=== PATIENT | male | born 1950 | race Two or more races ===

== ENCOUNTER 2022-06-19 07:30 | Inpatient (IN) | payer OTHER ==
[~2022-06-19] VITALS: Ht 170.2 cm; Wt 72.6 kg
[2022-06-19] MEDS ORDERED: ZOLOFT50 MG PO (08:49)
[2022-06-24] MEDS ORDERED: MIRTAZAPINE7.5 MG (09:10)
[2022-06-26] MEDS ORDERED: ELIQUIS2.5 MG PO (14:43)
[2022-06-26] MEDS ORDERED: DUI500 PO (14:43)
[2022-06-26] MEDS ORDERED: PERCOCET 5-3251 EACH PO (14:43)
== END 2022-06-26 19:18 | disposition home or self-care (01) | DRG 470 ==
LOC: O/R 06-24 06:23 → SURH 06-24 06:23 → SURG 06-24 07:00 → SURH 06-24 10:52
PROVIDERS: ADMIT Orthopaedic Surgery; ATTEND Orthopaedic Surgery
PROC: 0SRD0J9 Replacement of Left Knee Joint with Synthetic Substitute, Cemented, Open Approach (ICD-10-PCS; principal; 2022-06-24 07:00)
DX: M17.12 Unilateral primary osteoarthritis, left knee (principal); D62 Acute posthemorrhagic anemia; M22.12 Recurrent subluxation of patella, left knee; J44.9 Chronic obstructive pulmonary disease, unspecified; Z96.652 Presence of left artificial knee joint; Z20.822 Contact with and (suspected) exposure to COVID-19; K70.9 Alcoholic liver disease, unspecified; F48.9 Nonpsychotic mental disorder, unspecified

== ENCOUNTER → 2022-07-30 | Emergency (ER) | payer OTHER ==
[~2022-07-30] VITALS: Ht 170.2 cm; Wt 76.7 kg
[~2022-07-30] MED LIST: ABANEU-SL TABL1 EACH; DUI500 PO; ELIQUIS2.5 MG PO; MELATONIN5 MG; MIRTAZAPINE7.5 MG; PERCOCET 5-3251 EACH PO; ZOLOFT50 MG PO
== END | disposition home or self-care (01) ==
LOC: ER 09:08
DX: M25.562 Pain in left knee (principal)

== ENCOUNTER 2023-09-07 08:52 | Emergency (ER) | payer OTHER ==
[~2023-09-07] VITALS: Ht 170.2 cm; Wt 81.6 kg
== END 2023-09-07 12:29 | disposition home or self-care (01) ==
LOC: ER 08:53
DX: R21 Rash and other nonspecific skin eruption (principal)